=== PATIENT | female | born 1985 | race Caucasian/White ===

== ENCOUNTER 2017-08-21 05:45 | Emergency (ER) | payer OTHER ==
[2017-08-21 07:18] LABS: ABSOLUTE EOSINOPHILS # (AUTO) 0.3 10^3/uL (0.0-0.6); ABSOLUTE LYMPHOCYTES (AUTO) 1.7 10^3/uL (0.5-4.7); ABSOLUTE MONOCYTES (AUTO) 0.6 10^3/uL (0.1-1.4); ABSOLUTE NEUT (AUTO) 4.5 10^3/uL (1.7-8.2); BASOPHILS % (AUTO) 0.3 % (0-2); EOSINOPHILS % (AUTO) 3.9 % (0-6); HEMATOCRIT 40.3 % (36.0-47.0); HEMOGLOBIN 13.9 g/dL (12.0-15.5); LYMPHOCYTES % (AUTO) 23.6 % (13-45); MEAN CORPUSCULAR HEMOGLOBIN 28.8 pg (27.0-33.4); MEAN CORPUSCULAR HGB CONC 34.5 g/dL (32.0-36.0); MEAN CORPUSCULAR VOLUME 84 fl (80-97); MONOCYTES % (AUTO) 8.7 % (3-13); PLATELET COUNT 242 10^3/uL (150-450); RED BLOOD COUNT 4.82 10^6/uL (3.72-5.28); RED CELL DISTRIBUTION WIDTH 12.8 % (11.5-14.0); SEGMENTED NEUTROPHILS % (AUTO) 63.5 % (42-78); TOTAL CELLS COUNTED % (AUTO) 100 %
[2017-08-21] MEDS ORDERED: ONDANSETRON HCL INJ/PF 4 MG/2 ML SDV IV ONE (07:19)
[2017-08-21] MEDS ORDERED: HYDROMORPHONE HCL INJ/PF 2 MG/ML AMPULE IV ONE (07:19)
--- NOTE | 2017-08-21 07:25 | ER Document Report ---
ED General - General Mode of Arrival: Ambulatory Information source: Patient TRAVEL OUTSIDE OF THE [place] IN LAST 30 DAYS: No <JAKUB MOLINA - Last Filed: 08/21/17 08:38> <ALEXIS NOLASCO - Last Filed: 08/21/17 16:01> - General Chief Complaint: Pelvic Pain Stated Complaint: ABDOMINAL PAIN Time Seen by Provider: 08/21/17 06:59 Notes: Patient is a 32 year old female with PCOS presents to the emergency department complaining of abdominal pain onset this morning. Patient states she woke up with severe right lower quadrant abdominal pain further stating she has felt similar pain just not as severe. Patient also states she normally has heavy periods although her current period consisted of dark brown blood and thick discharge which is abnormal for her. Patient denies any nausea, vomiting or diarrhea. Of significance, patient states she has had kidney stones in the past although her current pain feels nothing like her previous kidney stones. (JAKUB MOLINA) Last menstrual period was in May however this is not unusual for her as she has PCOS and frequently has irregular periods. (ALEXIS NOLASCO) - Related Data Allergies/Adverse Reactions: No Known Allergies Allergy (Verified 08/21/17 08:38) Past Medical History - General Information source: Patient Last Menstrual Period: 08-10-17 - Social History Smoking Status: Never Smoker Chew tobacco use (# tins/day): No Frequency of alcohol use: Rare Drug Abuse: None Family History: Reviewed & Not Pertinent Patient has suicidal ideation: No Patient has homicidal ideation: No Renal/ Medical History: Reports: Hx Kidney Stones, Hx Ovarian Cysts - PCOS, Hx Peritoneal Dialysis <JAKUB MOLINA - Last Filed: 08/21/17 08:38> Review of Systems - Review of Systems Constitutional: No symptoms reported EENT: No symptoms reported Cardiovascular: No symptoms reported Respiratory: No symptoms reported Gastrointestinal: See HPI, Abdominal pain Genitourinary: No symptoms reported Female Genitourinary: See HPI, Heavy/abnormal periods, Vaginal discharge Musculoskeletal: No symptoms reported Skin: No symptoms reported Hematologic/Lymphatic: No symptoms reported Neurological/Psychological: No symptoms reported -: Yes All other systems reviewed and negative <JAKUB MOLINA - Last Filed: 08/21/17 08:38> Physical Exam <JAKUB MOLINA - Last Filed: 08/21/17 08:38> <ALEXIS NOLASCO - Last Filed: 08/21/17 16:01> - Vital signs Vitals: Temp Pulse Resp BP Pulse Ox 97.8 F 86 16 117/80 100 08/21/17 05:54 08/21/17 05:54 08/21/17 05:54 08/21/17 05:54 08/21/17 05:54 - Notes Notes: GENERAL: Alert, interacts well. No acute distress. HEAD: Normocephalic, atraumatic. EYES: Pupils equal, round, and reactive to light. Extraocular movements intact. ENT: Oral mucosa moist, tongue midline. NECK: Full range of motion. Supple. Trachea midline. LUNGS: Clear to auscultation bilaterally, no wheezes, rales, or rhonchi. No respiratory distress. HEART: Regular rate and rhythm. No murmurs, gallops, or rubs. ABDOMEN: Soft, RLQ tenderness to palpation, small amount of guarding, no rebound or rigidity. Non-distended. Bowel sounds present in all 4 quadrants. EXTREMITIES: Moves all 4 extremities spontaneously. NEUROLOGICAL: Alert and oriented x3. Normal speech. PSYCH: Normal affect, normal mood. SKIN: Warm, dry, normal turgor. No rashes or lesions noted. (JAKUB MOLINA) Course - Laboratory Result Diagrams: 08/21/17 07:05 08/21/17 07:05 <JAKUB MOLINA - Last Filed: 08/21/17 08:38> - Laboratory Result Diagrams: 08/21/17 07:05 08/21/17 07:05 <ALEXIS NOLASCO - Last Filed: 08/21/17 16:01> - Re-evaluation Re-evalutation: 08/21/17 11:39 CBC unremarkable, no leukocytosis, no anemia, CMP unremarkable, test is actually positive with a quantitative beta-hCG of 449.35, urinalysis shows moderate blood but only 1 RBC, gonorrhea and chlamydia not detected and dirty urine, patient is O+ so RhoGam is not indicated, transvaginal ultrasound initially performed to look for ovarian torsion before we knew the test was positive but then reexamined once we knew the test was positive showed small to mild free fluid in the cul-de-sac, this finding may be on a physiologic basis, possible ruptured ovarian cyst or follicle, no thickening of the endometrial stripe. Good blood flow to the bilateral ovaries. No masses. Patient's abdomen is tender to palpation but is not surgical at this time. Discussed the case with Dr. Tamara Weber who is on- call for [employer], recommends repeating quantitative hCG in 2 days. Recommends discharge to home. Should the patient's pain worsen patient has been instructed to return and she may be admitted to the hospital for observation should her pain worsen significantly or she develop any signs of ruptured ectopic . Dr. Weber also stated that the pain may be due to a ruptured corpus luteum cyst. Patient is aware of the broad differential for her pain and her vaginal bleeding. Patient is aware she was should return should the pain worsen and she should come back for a repeat quantitative hCG in 2 days. (ALEXIS NOLASCO) - Vital Signs Vital signs: Temp Pulse Resp BP Pulse Ox 98.2 F 86 16 104/76 97 08/21/17 11:49 08/21/17 05:54 08/21/17 05:54 08/21/17 11:49 08/21/17 11:49 - Laboratory Laboratory results interpreted by me: 08/21/17 08/21/17 08/21/17 07:05 07:05 07:05 Chloride 108 H Glucose 113 H Serum HCG, Qual POSITIVE H Beta HCG, Quant 449.35 H Urine Blood 08/21/17 07:25 Chloride Glucose Serum HCG, Qual Beta HCG, Quant Urine Blood MODERATE H Discharge <JAKUB MOLINA - Last Filed: 08/21/17 08:38> <ALEXIS NOLASCO - Last Filed: 08/21/17 16:01> - Discharge Clinical Impression: RLQ abdominal pain, Positive test, Abdominal pain affecting Condition: Stable Disposition: HOME, SELF-CARE Additional Instructions: Today your test came back positive. It was a very low positive. The exact number was 449.37. You will need to have your quantitative hCG ( test) repeated in 48 hours. Please come back on Monday the to have this repeated. We are hoping that this number will double up by Monday, that would be a promising sign for a normal . If the number goes down then you have likely had a miscarriage. If the number does not double but does somewhat increase then we need to be more suspicious for an ectopic or tubal . You may take Advil, Tylenol and the Vicodin that we have prescribed. If your pain should significantly worsen despite these medications, you become dizzy, pass out or develop any new or concerning symptoms please return to the emergency department immediately. Today your ultrasound did not show a in the uterus or in the tubes. This could be due to movement in miscarriage or just a very early . Prescriptions: Hydrocodone/Acetaminophen [Pennock 5-325 mg Tablet] 1 - 2 tab PO Q4HP PRN #14 tablet PRN Reason: Forms: Follow-Up Laboratory Testing, Parent Work Note, Return to Work Referrals: TAMARA WEBER MD [ACTIVE STAFF] - Follow up in 3-5 days Scribe Attestation: 08/21/17 16:01 I personally performed the services described in the documentation, reviewed and edited the documentation which was dictated to the scribe in my presence, and it accurately records my words and actions. (ALEXIS NOLASCO) Scribe Documentation - Scribe Written by Lizet:: Lizet Mojica, 08/21/2017 08:11 acting as scribe for :: Alexsander <JAKUB MOLINA - Last Filed: 08/21/17 08:38>
[2017-08-21 07:34] LABS: ALANINE AMINOTRANSFERASE 23 U/L (9-52); ALBUMIN 4.1 g/dL (3.5-5.0); ALKALINE PHOSPHATASE 52 U/L (38-126); ANION GAP 10 (5-19); ASPARTATE AMINO TRANSFERASE 36 U/L (14-36); BILIRUBIN,DIRECT 0.2 mg/dL (0.0-0.4); BILIRUBIN,TOTAL 0.3 mg/dL (0.2-1.3); BLOOD UREA NITROGEN 13 mg/dL (7-20); CALCIUM 9.1 mg/dL (8.4-10.2); CARBON DIOXIDE 26 mmol/L (22-30); CHLORIDE 108 mmol/L (98-107); GLUCOSE 113 mg/dL (75-110); POTASSIUM 4.6 mmol/L (3.6-5.0); SODIUM 144.3 mmol/L (137-145); TOTAL PROTEIN 7.2 g/dL (6.3-8.2)
[2017-08-21 07:44] LABS: APPEARANCE,URINE CLEAR; BILIRUBIN,URINE NEGATIVE (NEGATIVE); COLOR,URINE STRAW; GLUCOSE, URINE NEGATIVE (NEGATIVE); KETONES,URINE NEGATIVE (NEGATIVE); LEUKOCYTE ESTERASE,URINE NEGATIVE (NEGATIVE); NITRITE,URINE NEGATIVE (NEGATIVE); PROTEIN,URINE NEGATIVE (NEGATIVE); UROBILINOGEN,URINE NEGATIVE mg/dL (<2.0)
[2017-08-21] MEDS ORDERED: ONDANSETRON 4 MG TAB.RAPDIS ONE (08:40)
[2017-08-21] MEDS ORDERED: ONDANSETRON 4 MG TAB.RAPDIS PO ONE (08:44)
--- NOTE | 2017-08-21 09:10 | RADIOLOGY REPORT (SQ) ---
EXAM DESCRIPTION: U/S NON OB PEL TV W/DOPPLER COMPLETED DATE/TIME: 08/21/2017 8:42 am REASON FOR STUDY: RLQ pain, r/o torsion, h/o PCOS COMPARISON: None. TECHNIQUE: Dynamic and static grayscale images acquired of the pelvis via transvaginal approach and recorded on PACS. Additional selected color Doppler and spectral images recorded. LIMITATIONS: None. FINDINGS: UTERUS: Contour normal. No mass. ENDOMETRIAL STRIPE: No focal or generalized thickening. No masses. CERVIX: The cervix measures 2.1 cm and is closed. RIGHT OVARY AND DOPPLER: Normal size. No worrisome masses. Normal arterial vascular flow without evid ence for torsion. LEFT OVARY AND DOPPLER: Normal size. No worrisome masses. Normal arterial vascular flow without evide nce for torsion. FREE FLUID: Small to mild volume free fluid in the cul-de-sac. OTHER: No other significant finding. MEASUREMENTS: UTERUS: 6.4 x 3.0 x 4.4 cm ENDOMETRIAL STRIPE: 4 mm RIGHT OVARY: 2.4 x 2.1 x 1.8 cm LEFT OVARY: 2.9 x 2.1 x 1.8 cm IMPRESSION: 1 Small to mild free fluid in the cul-de-sac. This finding may be on a physiologic basi s, possible rupture of ovarian cyst or follicle. 2 Examination is otherwise unremarkable sonographically. TECHNICAL DOCUMENTATION: JOB ID: [id number]- All Rights Reserved Rev-06/23 Reading location - IP/workstation name: [email or web address]
[2017-08-21 09:27] LABS: CHLAM PCR NOT DETECTED (NOT DETECT); GON PCR NOT DETECTED (NOT DETECT)
[2017-08-21 12:02] VITALS: BP 104/76
[2017-08-21] MEDS ORDERED: HYDROCODONE/ACETAMINOPHEN 5-325 MG TABLET PO ONE (12:02)
[2017-08-21] MEDS ORDERED: KETOROLAC TROMETHAMINE INJ/PF 30 MG/1 ML SDV IV ONE (12:02)
== END 2017-08-21 12:29 | disposition home or self-care (01) ==
LOC: ER 05:45
DX: O34.80 Maternal care for other abnormalities of pelvic organs, unspecified trimester (principal); E28.2 Polycystic ovarian syndrome; O26.899 Other specified pregnancy related conditions, unspecified trimester; R10.31 Right lower quadrant pain; N89.8 Other specified noninflammatory disorders of vagina; O46.90 Antepartum hemorrhage, unspecified, unspecified trimester; Z3A.00 Weeks of gestation of pregnancy not specified; Z87.442 Personal history of urinary calculi
CPT/HCPCS: 99284; 96374; 96375; 86900; 86901; 36415; 84702; 84703; 85025; 80053; 81001; 87491; 87591; 76830; 93976; S0119; J1885; J1170

== ENCOUNTER → 2017-08-23 | Outpatient (CLI) | payer OTHER | LOC: LAB 08:10 | PROVIDERS: ATTEND Emergency Medicine | DX: R10.31 Right lower quadrant pain (principal) | CPT/HCPCS: 36415; 84702 ==

== ENCOUNTER 2017-09-01 07:45 | Emergency (ER) | payer OTHER ==
[2017-09-01 07:50] VITALS: BP 115/83
[2017-09-01] MEDS ORDERED: ACETAMINOPHEN 325 MG TABLET PO ONE (08:11)
--- NOTE | 2017-09-01 08:25 | ER Document Report ---
ED General - General Chief Complaint: Vaginal Bleeding Stated Complaint: CRAMPING/SPOTTING Time Seen by Provider: 09/01/17 08:09 TRAVEL OUTSIDE OF THE [place] IN LAST 30 DAYS: No - HPI Notes: Patient is a 32-year-old female (approx reported to be around <=6wks) with a history of PCOS who presents to the ED complaining of suprapubic/right lower pelvic pain and vaginal bleeding 1 day. Patient states that she was evaluated about 11 days ago here in the ED and had a workup performed at that time and found she is , but the ultrasound was unremarkable at that time. Patient states that she was also evaluated by the women's clinic and they could not "find anything." Patient states that she was starting to feel better and was not having any bleeding until last night which is what prompted her to come to the ED again today. Patient states that she is otherwise eating and drinking without any difficulties. She is urinating normally and having normal bowel movements. Patient denies any IV drug use or alcohol involvement. Denies any headache, fever, URI, sore throat, chest pain, palpitations, syncope, cough, shortness of breath, wheeze, dyspnea, nausea/vomiting/diarrhea, urinary retention, dysuria, hematuria, back pain, loss of control of bowel or bladder, numbness/tingling, saddle anesthesia, muscle paralysis/weakness, or rash. - Related Data Allergies/Adverse Reactions: No Known Allergies Allergy (Verified 09/01/17 09:52) Past Medical History - Social History Smoking Status: Never Smoker Family History: Reviewed & Not Pertinent Renal/ Medical History: Reports: Hx Kidney Stones, Hx Ovarian Cysts - PCOS, Hx Peritoneal Dialysis Review of Systems - Review of Systems -: Yes All other systems reviewed and negative Physical Exam - Vital signs Vitals: Temp Pulse Resp BP Pulse Ox 97.8 F 73 16 115/83 98 09/01/17 07:49 09/01/17 07:49 09/01/17 07:49 09/01/17 07:49 09/01/17 07:49 - Notes Notes: PHYSICAL EXAMINATION: GENERAL: Well-appearing, well-nourished and in no acute distress. EYES: Pupils equal round and reactive to light, extraocular movements intact, sclera anicteric, conjunctiva are normal. ENT: Nares patent and without discharge. oropharynx clear without exudates. No tonsilar hypertrophy or erythema. Moist mucous membranes. NECK: Normal range of motion, supple without lymphadenopathy LUNGS: Breath sounds clear to auscultation bilaterally and equal. No wheezes rales or rhonchi. HEART: Regular rate and rhythm without murmurs, rubs, gallops. ABDOMEN: Soft, nondistended abdomen. No guarding, no rebound. No masses appreciated. Normal bowel sounds present. No CVA tenderness bilaterally. + mild tenderness to the suprapubic/Rt lower pelvic area. Musculoskeletal: FROM to passive/active. Strength 5+/5. Extremities: No cyanosis, clubbing, or edema b/l. Peripheral pulses 2+. Capillary refill less than 3 seconds. NEUROLOGICAL: Normal speech, normal gait. PSYCH: Normal mood, normal affect. SKIN: Warm, Dry, normal turgor, no rashes or lesions noted. Course - Re-evaluation Re-evalutation: 09/01/17 08:23 Patient had an unremarkable ultrasound at last visit as well as an hCG of 449. She had a repeat hCG 48 hours later that was 628. She had negative STD testing at that time. We will recheck labs and ultrasound. tylenol ordered. 09/01/17 09:53 Patient is an afebrile, well-hydrated, 32-year-old female who presents to the ED with pelvic pain/bleeding in early , suspect that she is miscarrying. Vitals are acceptable without any significant tachycardia, tachypnea, or hypoxia. PE is otherwise unremarkable. CBC, CMP, UA unremarkable. HCG only increased from 628 11 days ago to 699. Patient is nontoxic-appearing is tolerating p.o. without any difficulties. Transvaginal ultrasound was also unremarkable. No adenexal tenderness. No other labs or imaging warranted at this time based on H&P. Low suspicion/risk for acute appendicitis, bowel obstruction, acute cholecystitis, acute cholangitis, perforated diverticulitis, incarcerated hernia, pancreatitis, perforated ulcer, peritonitis, sepsis, pelvic inflammatory disease, tubo-ovarian abscess, ovarian torsion, or other systemic emergent condition at this time. I did call and review with RANDELL Hill, who believes that she is miscarrying and we do not need to order another set of labs/imaging at this time. He would like her to have some pain meds for cramping and to f/u Monday with the [facility]. Patient is aware that her condition can change from initial presentation and she needs to monitor symptoms closely and seek medical attention if any acute changes. I will send her home with prescription for morphine IR. Conservative measures otherwise for symptoms. Recheck with your OBGYN monday. Return to the ED with any worsening/concerning symptoms otherwise as reviewed in discharge. Patient is in agreement. - Vital Signs Vital signs: Temp Pulse Resp BP Pulse Ox 97.8 F 73 16 115/83 98 09/01/17 07:49 09/01/17 07:49 09/01/17 07:49 09/01/17 07:49 09/01/17 07:49 - Laboratory Result Diagrams: 09/01/17 08:10 09/01/17 08:10 Laboratory results interpreted by me: 09/01/17 09/01/17 08:10 08:10 Beta HCG, Quant 699.33 H Urine Ketones TRACE H Urine Blood MODERATE H Discharge - Discharge Clinical Impression: Bleeding in early Condition: Stable Disposition: HOME, SELF-CARE Instructions: Bleeding During Early ([facility]) Additional Instructions: Maintain fluid intake Proper hygenic technique Keep the skin clean Avoid sexual intercourse until directed otherwise by OBGYN Tylenol/ibuprofen as needed Return immediately if symptoms worsen F/u with your OBGYN on Monday* for a recheck Return to the ED with any development of LYNN/fever, trouble with vision, eye redness, worsening pain, urethral discharge, urinary retention, blood in the urine, flank pain, abdominal pain, n/v, Chest Pain, shortness of breath, joint pains, trouble breathing, or any other worsening/concerning symptoms as needed otherwise. Prescriptions: Morphine Sulfate [Morphine Ir 15 Mg Tablet] 15 mg PO TID PRN #15 tablet PRN Reason: [facility]errals[facility]] - 09/04/17
[2017-09-01 08:32] LABS: ABSOLUTE EOSINOPHILS # (AUTO) 0.2 10^3/uL (0.0-0.6); ABSOLUTE LYMPHOCYTES (AUTO) 1.8 10^3/uL (0.5-4.7); ABSOLUTE MONOCYTES (AUTO) 0.6 10^3/uL (0.1-1.4); ABSOLUTE NEUT (AUTO) 4.2 10^3/uL (1.7-8.2); BASOPHILS % (AUTO) 0.3 % (0-2); EOSINOPHILS % (AUTO) 3.1 % (0-6); HEMATOCRIT 41.3 % (36.0-47.0); HEMOGLOBIN 14.1 g/dL (12.0-15.5); LYMPHOCYTES % (AUTO) 26.2 % (13-45); MEAN CORPUSCULAR HEMOGLOBIN 28.8 pg (27.0-33.4); MEAN CORPUSCULAR HGB CONC 34.1 g/dL (32.0-36.0); MEAN CORPUSCULAR VOLUME 85 fl (80-97); MONOCYTES % (AUTO) 8.5 % (3-13); PLATELET COUNT 250 10^3/uL (150-450); RED BLOOD COUNT 4.89 10^6/uL (3.72-5.28); RED CELL DISTRIBUTION WIDTH 12.8 % (11.5-14.0); SEGMENTED NEUTROPHILS % (AUTO) 61.9 % (42-78); TOTAL CELLS COUNTED % (AUTO) 100 %; WHITE BLOOD COUNT 6.7 10^3/uL (4.0-10.5)
[2017-09-01 08:51] LABS: APPEARANCE,URINE CLOUDY; BILIRUBIN,URINE NEGATIVE (NEGATIVE); COLOR,URINE YELLOW; GLUCOSE, URINE NEGATIVE (NEGATIVE); KETONES,URINE TRACE mg/dL (NEGATIVE); LEUKOCYTE ESTERASE,URINE NEGATIVE (NEGATIVE); NITRITE,URINE NEGATIVE (NEGATIVE); PROTEIN,URINE NEGATIVE (NEGATIVE); URINE SPECIFIC GRAVITY 1.017; UROBILINOGEN,URINE NEGATIVE mg/dL (<2.0)
[2017-09-01 08:52] LABS: ALANINE AMINOTRANSFERASE 49 U/L (9-52); ALBUMIN 4.3 g/dL (3.5-5.0); ALKALINE PHOSPHATASE 54 U/L (38-126); ANION GAP 13 (5-19); ASPARTATE AMINO TRANSFERASE 34 U/L (14-36); BILIRUBIN,DIRECT 0.2 mg/dL (0.0-0.4); BILIRUBIN,TOTAL 0.6 mg/dL (0.2-1.3); BLOOD UREA NITROGEN 15 mg/dL (7-20); CALCIUM 9.3 mg/dL (8.4-10.2); CARBON DIOXIDE 25 mmol/L (22-30); CHLORIDE 105 mmol/L (98-107); GLUCOSE 102 mg/dL (75-110); POTASSIUM 4.4 mmol/L (3.6-5.0); SODIUM 142.9 mmol/L (137-145); TOTAL PROTEIN 7.2 g/dL (6.3-8.2)
--- NOTE | 2017-09-01 09:46 | RADIOLOGY REPORT (SQ) ---
EXAM DESCRIPTION: U/S OB TRANSVAG W/DOPPLER COMPLETED DATE/TIME: 09/01/2017 9:37 am REASON FOR STUDY: rt pelvic pain, + COMPARISON: None. TECHNIQUE: Transabdominal static and realtime grayscale images acquired of the pelvis. Additional se lected spectral and color Doppler images recorded. All images stored on PACs. BHC.3 LIMITATIONS: None. FINDINGS: UTERUS: No visualized intrauterine . RIGHT ADNEXA: Normal ovary with normal vascular flow. No adnexal free fluid. No adnexal masses. LEFT ADNEXA: Normal ovary with normal vascular flow. No adnexal free fluid. No adnexal masses. FREE FLUID: None. OTHER: No other significant finding. IMPRESSION: NO VISUALIZED INTRA- OR EXTRAUTERINE . bHCG LEVEL TOO LOW TO EXPECT VISUALIZATION OF . ECTOPIC CANNOT BE EXCLUDED. FOLLOW-UP ULTRASOUND AND SERIAL BHCG LEVELS STRONGLY RECOMMENDED TO ACCURATELY ASSESS STATU S. TECHNICAL DOCUMENTATION: JOB ID: [id number] [employer]- All Rights Reserved Reading location - IP/workstation name: [email or web address]
== END 2017-09-01 10:18 | disposition home or self-care (01) ==
LOC: ER 07:45
DX: O20.9 Hemorrhage in early pregnancy, unspecified (principal); O26.899 Other specified pregnancy related conditions, unspecified trimester; R10.2 Pelvic and perineal pain; Z3A.00 Weeks of gestation of pregnancy not specified
CPT/HCPCS: 36415; 76817; 80053; 81001; 84702; 85025; 87086; 93976; 99284

== ENCOUNTER 2017-09-06 09:42 | Day surgery (SDC) | payer OTHER ==
[~2017-09-06 09:42] MED LIST: FENTANYL CITRATE INJ/PF 100 MCG/2 ML AMPUL ONE; MIDAZOLAM 2 MG/2 ML INJ ONE; PROPOFOL INJ 200 MG/20 ML VIAL IV ONE
[2017-09-06 10:27] LABS: APPEARANCE,URINE CLEAR; BILIRUBIN,URINE NEGATIVE (NEGATIVE); COLOR,URINE YELLOW; GLUCOSE, URINE NEGATIVE (NEGATIVE); KETONES,URINE NEGATIVE (NEGATIVE); LEUKOCYTE ESTERASE,URINE NEGATIVE (NEGATIVE); NITRITE,URINE NEGATIVE (NEGATIVE); PROTEIN,URINE NEGATIVE (NEGATIVE); URINE SPECIFIC GRAVITY 1.014; UROBILINOGEN,URINE NEGATIVE mg/dL (<2.0)
[2017-09-06 10:39] LABS: HEMATOCRIT 40.4 % (36.0-47.0); HEMOGLOBIN 14.1 g/dL (12.0-15.5); MEAN CORPUSCULAR HEMOGLOBIN 29.1 pg (27.0-33.4); MEAN CORPUSCULAR HGB CONC 34.8 g/dL (32.0-36.0); MEAN CORPUSCULAR VOLUME 84 fl (80-97); PLATELET COUNT 243 10^3/uL (150-450); RED BLOOD COUNT 4.83 10^6/uL (3.72-5.28); RED CELL DISTRIBUTION WIDTH 12.8 % (11.5-14.0); WHITE BLOOD COUNT 6.4 10^3/uL (4.0-10.5)
[2017-09-06] MEDS ORDERED: FENTANYL CITRATE INJ/PF 100 MCG/2 ML AMPUL IV PRN ×3 (11:41)
[2017-09-06] MEDS ORDERED: MEPERIDINE HCL/PF INJ 25 MG/1 ML DISP.SYRIN IV PRN (11:41)
[2017-09-06] MEDS ORDERED: DIPHENHYDRAMINE HCL 50 MG/ML VIAL IV PRN (11:41)
[2017-09-06] MEDS ORDERED: PROMETHAZINE HCL INJ 25 MG/1 ML VIAL IV PRN (11:41)
--- NOTE | 2017-09-06 11:58 | Operative Report ---
Operative Report DATE OF SURGERY: 09/06/17 PREOPERATIVE DIAGNOSIS: Patient has a plateaued quant hCG at about 600. We are performing a D&C to evaluate for uterine versus ectopic. POSTOPERATIVE DIAGNOSIS: Very little return of tissue at this time I suspect she has an ectopic. OPERATION: Suction D&C SURGEON: SEBASTIÁN AKINS ANESTHESIA: GA TISSUE REMOVED OR ALTERED: Uterine contents COMPLICATIONS: None ESTIMATED BLOOD LOSS: 10 cc INTRAOPERATIVE FINDINGS: The uterine cavity diverts to the patient's left I suspect a uterine malformation. PROCEDURE: Patient was taken the OR and placed in supine position. General anesthesia was induced. She is placed in dorsolithotomy position using Kurt stirrups. Her perineum vagina were prepared and draped in sterile fashion. She had voided prior to the procedure did not need catheterization. Tenaculum was placed on the anterior aspect of the cervix sounded to 8 cm before and at the end of the case. This the uterine cavity does divert to the patient's left. Cervix was gently dilated. The cervix was difficult to dilate and would not allow the size 8 curette. For this reason I used an endometrial sampler to obtain the specimen. The device used a syringe for suction. Also a hysteroscope could not be placed because of the difficulty in dilating the patient cervix. Very little tissue was obtained. I suspect that there is not a intrauterine present. She has had a plateaued hCG for several weeks and likely has an ectopic. We will give methotrexate after tissue diagnosis returns. She was extubated in the OR and taken recovery in stable condition.
[2017-09-06] MEDS ORDERED: KETOROLAC TROMETHAMINE INJ/PF 30 MG/1 ML SDV ONE ×2 (12:09→12:15)
[2017-09-06] MEDS ORDERED: ACETAMINOPHEN 1,000 MG/100 ML RTUPB IV ONE (12:12)
[2017-09-06] MEDS ORDERED: FENTANYL CITRATE INJ/PF 100 MCG/2 ML AMPUL ONE (12:32)
[2017-09-06] MEDS ORDERED: OXYCODONE-ACETAMINOPHEN 5-325 MG TABLET PO PRN ×2 (12:39→12:40)
[2017-09-06] MEDS ORDERED: IBUPROFEN 800 MG TABLET PO PRN (12:39)
[2017-09-06] MEDS ORDERED: RINGERS SOLUTION,LACTATED 1,000 ML IV PRN (12:42)
[2017-09-06 16:25] VITALS: BP 110/64
[2017-09-06] MEDS ORDERED: ONDANSETRON HCL INJ/PF 4 MG/2 ML SDV ONE (21:23)
== END 2017-09-06 14:45 | disposition home or self-care (01) ==
LOC: OROUT 09:42
PROVIDERS: ATTEND Obstetrics & Gynecology
DX: O20.0 Threatened abortion (principal); E11.9 Type 2 diabetes mellitus without complications; E28.2 Polycystic ovarian syndrome
CPT/HCPCS: 36415; 84702; 85027; 81001; 88305 ×2; 59812; J2250; J3010; J1885; J2405; J2704; J0131; 1965

== ENCOUNTER 2018-07-04 14:16 | Outpatient (CLI) | payer OTHER | END 2018-07-04 15:29 | disposition home or self-care (01) | LOC: LC 14:16 | PROVIDERS: ATTEND Obstetrics & Gynecology | DX: O26.892 Other specified pregnancy related conditions, second trimester (principal); R10.2 Pelvic and perineal pain; Z3A.24 24 weeks gestation of pregnancy ==

== ENCOUNTER 2018-09-28 05:04 | Emergency (ER) | payer OTHER ==
[2018-09-28 05:25] VITALS: BP 144/91
--- NOTE | 2018-09-28 06:50 | ER Document Report ---
HPI - HPI Time Seen by Provider: 09/28/18 06:24 Pain Level: 3 Context: Patient is a 33-year-old female that comes to the emergency department for chief complaint of left knee pain. She states since yesterday she has had a lot of popping and pain with movement. Pain is worse on the stairs. She states she is unsure if she injured herself. She is 33 weeks . She denies swelling of the leg, denies numbness, denies any other complaints. - REPRODUCTIVE LMP: 36 wk preg Reproductive: REPORTS: : Past Medical History - General Information source: Patient - Social History Smoking Status: Never Smoker Frequency of alcohol use: None Lives with: Family Family History: Reviewed & Not Pertinent Patient has suicidal ideation: No Patient has homicidal ideation: No - Past Medical History Cardiac Medical History: Denies: Hx Coronary Artery Disease, Hx Heart Attack, Hx Hypertension Pulmonary Medical History: Denies: Hx Asthma, Hx Bronchitis, Hx COPD, Hx Pneumonia Neurological Medical History: Denies: Hx Cerebrovascular Accident, Hx Seizures Renal/ Medical History: Reports: Hx Kidney Stones, Hx Ovarian Cysts - PCOS. Denies: Hx Peritoneal Dialysis Musculoskeletal Medical History: Denies Hx Arthritis Past Surgical History: Reports: Hx Tonsillectomy - Immunizations Immunizations up to date: Yes Hx Diphtheria, Pertussis, Tetanus Vaccination: Yes Vertical Provider Document - CONSTITUTIONAL General Appearance: WD/WN, No Apparent Distress - INFECTION CONTROL TRAVEL OUTSIDE OF THE [place] IN LAST 30 DAYS: No - HEENT HEENT: Atraumatic, Normal ENT Exam, Normocephalic - NECK Neck: Normal Inspection - RESPIRATORY Respiratory: Breath Sounds Normal, No Respiratory Distress - CARDIOVASCULAR Cardiovascular: Regular Rate, Regular Rhythm - GI/ABDOMEN Gastrointestinal: Abdomen Soft, Abdomen Non-Tender - BACK Back: Normal Inspection - MUSCULOSKELETAL/EXTREMETIES Musculoskeletal/Extremeties: MAEW, FROM, Non-Tender - There is no tenderness over the left knee where the complaint is focused, there is no abnormal swelling, erythema, and there is full range of motion. Calf is unremarkable, distal neurovascular exam unremarkable, hip and ankle are unremarkable. However there is a positive Silva's test with popping. Course - Re-evaluation Re-evalutation: Patient with very unremarkable knee exam with no tenderness on palpation, no erythema, swelling, normal range of motion. Very low suspicion of septic arthritis, no evidence of trauma. However she does have a positive Silva's test. Based on her description and her exam I suspect she has a torn meniscus. She is . She was provided with knee immobilizer, crutches, recommendations, expectations, follow-up, and return precautions. I discussed these all in detail. Patient declined x-ray after discussion. Stable at time of discharge. - Vital Signs Vital signs: Temp Pulse Resp BP Pulse Ox 97.2 F 93 16 144/91 H 97 09/28/18 05:17 09/28/18 05:17 09/28/18 05:17 09/28/18 05:17 09/28/18 05:17 Discharge - Discharge Clinical Impression: Left knee pain Qualifiers: Chronicity: acute Qualified Code(s): M25.562 - Pain in left knee Condition: Stable Disposition: HOME, SELF-CARE Instructions: Use of Crutches ([facility]) Additional Instructions: Your evaluation is very suggestive of a meniscus tear inside the knee. This can heal, I recommend that you use a knee immobilizer and crutches, ice the area 3-4 times a day, and rest the knee. Symptoms might resolve with time. If symptoms persist follow-up with orthopedics, see referral. Return for any concerning symptoms including severe swelling, redness, pain, fever, or any other concerning symptoms. Forms: Return to Work Referrals: JUSTA PATE MD [ACTIVE STAFF] - Follow up in 1 week
== END 2018-09-28 07:06 | disposition home or self-care (01) ==
LOC: ER 05:04
DX: O9A.213 Injury, poisoning and certain other consequences of external causes complicating pregnancy, third trimester (principal); M25.562 Pain in left knee; X58.XXXA Exposure to other specified factors, initial encounter; Z3A.33 33 weeks gestation of pregnancy
CPT/HCPCS: 99283; L1830

== ENCOUNTER 2019-03-10 09:31 | Emergency (ER) | payer OTHER ==
[2019-03-10] MEDS ORDERED: ACETAMINOPHEN 325 MG TABLET PO ONE (10:25)
--- NOTE | 2019-03-10 10:26 | ER Document Report ---
ED Medical Screen (RME) - General Chief Complaint: Abdominal Cramping Stated Complaint: CRAMPS Time Seen by Provider: 03/10/19 10:19 Notes: Patient is a 33-year-old female who presents to the emergency department with a chief complaint of mid to right lower quadrant abdominal pain. Patient states that this pain feels similar as to when she had an ectopic in 2018. She denies any vaginal bleeding. Patient states that her last menstrual cycle was mid to late January. She cannot remember the exact date. Patient still has her appendix. She has not taken any medications to help with the pain. Exam: Soft, mildly tender right lower quadrant and mid lower abdomen. I have greeted and performed a rapid initial assessment of this patient. A comprehensive ED assessment and evaluation of the patient, analysis of test results and completion of medical decision making process will be conducted by an additional ED providers. TRAVEL OUTSIDE OF THE [place] IN LAST 30 DAYS: No - Related Data Allergies/Adverse Reactions: No Known Allergies Allergy (Verified 03/10/19 10:17) Past Medical History - Past Medical History Cardiac Medical History: Denies: Hx Coronary Artery Disease, Hx Heart Attack, Hx Hypertension Pulmonary Medical History: Denies: Hx Asthma, Hx Bronchitis, Hx COPD, Hx Pneumonia Neurological Medical History: Denies: Hx Cerebrovascular Accident, Hx Seizures Renal/ Medical History: Reports: Hx Kidney Stones, Hx Ovarian Cysts - PCOS, Hx Peritoneal Dialysis Musculoskeltal Medical History: Denies Hx Arthritis Past Surgical History: Reports: Hx Tonsillectomy - Immunizations Immunizations up to date: Yes Hx Diphtheria, Pertussis, Tetanus Vaccination: Yes Physical Exam - Vital signs Vitals: Temp Pulse Resp BP Pulse Ox 98.1 F 100 18 148/87 H 100 03/10/19 09:35 03/10/19 09:35 03/10/19 09:35 03/10/19 09:35 03/10/19 09:35 Course - Vital Signs Vital signs: Temp Pulse Resp BP Pulse Ox 98.1 F 100 18 148/87 H 100 03/10/19 09:35 03/10/19 09:35 03/10/19 09:35 03/10/19 09:35 03/10/19 09:35
[2019-03-10 11:05] LABS: ABSOLUTE EOSINOPHILS # (AUTO) 0.3 10^3/uL (0.0-0.6); ABSOLUTE LYMPHOCYTES (AUTO) 2.1 10^3/uL (0.5-4.7); ABSOLUTE MONOCYTES (AUTO) 0.5 10^3/uL (0.1-1.4); ABSOLUTE NEUT (AUTO) 6.4 10^3/uL (1.7-8.2); BASOPHILS % (AUTO) 0.2 % (0-2); EOSINOPHILS % (AUTO) 2.8 % (0-6); HEMATOCRIT 42.9 % (36.0-47.0); HEMOGLOBIN 14.8 g/dL (12.0-15.5); MEAN CORPUSCULAR HEMOGLOBIN 27.7 pg (27.0-33.4); MEAN CORPUSCULAR HGB CONC 34.4 g/dL (32.0-36.0); MEAN CORPUSCULAR VOLUME 81 fl (80-97); MONOCYTES % (AUTO) 5.6 % (3-13); PLATELET COUNT 308 10^3/uL (150-450); RED BLOOD COUNT 5.33 10^6/uL (3.72-5.28); RED CELL DISTRIBUTION WIDTH 13.7 % (11.5-14.0); SEGMENTED NEUTROPHILS % (AUTO) 68.4 % (42-78); TOTAL CELLS COUNTED % (AUTO) 100 %; WHITE BLOOD COUNT 9.3 10^3/uL (4.0-10.5)
[2019-03-10 11:09] LABS: APPEARANCE,URINE CLEAR; BILIRUBIN,URINE NEGATIVE (NEGATIVE); COLOR,URINE STRAW; GLUCOSE, URINE NEGATIVE (NEGATIVE); KETONES,URINE NEGATIVE (NEGATIVE); LEUKOCYTE ESTERASE,URINE NEGATIVE (NEGATIVE); NITRITE,URINE NEGATIVE (NEGATIVE); PROTEIN,URINE NEGATIVE (NEGATIVE); URINE SPECIFIC GRAVITY 1.008; UROBILINOGEN,URINE NEGATIVE mg/dL (<2.0)
[2019-03-10 11:26] LABS: ALBUMIN 4.5 g/dL (3.5-5.0); ALKALINE PHOSPHATASE 74 U/L (38-126); ANION GAP 10 (5-19); ASPARTATE AMINO TRANSFERASE 23 U/L (14-36); BILIRUBIN,DIRECT 0.2 mg/dL (0.0-0.4); BILIRUBIN,TOTAL 0.4 mg/dL (0.2-1.3); BLOOD UREA NITROGEN 12 mg/dL (7-20); CALCIUM 9.7 mg/dL (8.4-10.2); CARBON DIOXIDE 25 mmol/L (22-30); CHLORIDE 103 mmol/L (98-107); GLUCOSE 112 mg/dL (75-110); POTASSIUM 4.1 mmol/L (3.6-5.0); TOTAL PROTEIN 7.9 g/dL (6.3-8.2)
--- NOTE | 2019-03-10 12:21 | RADIOLOGY REPORT (SQ) ---
EXAM DESCRIPTION: U/S NON OB PEL TV W/DOPPLER COMPLETED DATE/TIME: 03/10/2019 12:05 pm REASON FOR STUDY: right pelvic pain COMPARISON: None. TECHNIQUE: Transvaginal static and realtime grayscale images acquired of the pelvis. Additional gwyn cted spectral and color Doppler images recorded. All images stored on PACs. CLINICAL AGE: Unavailable. bHCG: Unavailable. LIMITATIONS: None. FINDINGS: UTERUS: No masses. No anomalies. GESTATIONAL SAC: Normal shape. Measurements correspond to a 6 week 0 day gestation. YOLK SAC: Yes. POLE: None present. RIGHT ADNEXA: Ovary not identified due to poor acoustical window. No adnexal free fluid. No adnexal masses. LEFT ADNEXA: Ovary not identified due to poor acoustical window. No adnexal free fluid. No adnexal masses. FREE FLUID: None. OTHER: No other significant finding. IMPRESSION: POSSIBLE EARLY INTRAUTERINE . BHCG LEVEL NOT AVAILABLE FOR CORRELATION WITH US FINDINGS. CONSIDER F/U BHCG AND/OR ULTRASOUND FOR VERIFICATION AND TO EXCLUDE ECTOPIC . Trimester of : First trimester - 0 to 13 weeks. TECHNICAL DOCUMENTATION: JOB ID: [id number] [email or web address]- All Rights Reserved Reading location - IP/workstation name: [email or web address]
--- NOTE | 2019-03-10 12:22 | RADIOLOGY REPORT (SQ) ---
EXAM DESCRIPTION: U/S ABDOMEN LTD W/DOPPLER COMPLETED DATE/TIME: 03/10/2019 12:06 pm REASON FOR STUDY: RLQ pain COMPARISON: None. TECHNIQUE: Static and real time rodríguez scale imaging performed of the right lower quadrant with additi onal compression maneuvers. LIMITATIONS: Limited study due to the patient's body habitus. FINDINGS: APPENDIX: Not visualized. COMPRESSION MANEUVERS: No rebound pain with compression. OTHER: No other significant finding. IMPRESSION: APPENDIX NOT IDENTIFIED. TECHNICAL DOCUMENTATION: JOB ID: [id number] [employer]- All Rights Reserved Reading location - IP/workstation name: [email or web address]
[2019-03-10 14:40] VITALS: BP 139/86
--- NOTE | 2019-03-10 17:40 | ER Document Report ---
Entered by PADMINI RODRIGUEZ SCRIBE 03/10/19 1205 Acting as scribe for:LOC PORTILLO MD ED General - General Chief Complaint: Abdominal Cramping Stated Complaint: CRAMPS Time Seen by Provider: 03/10/19 10:19 Primary Care Provider: [facility] [Provider Group] - Follow up as needed Information source: Patient Notes: This 33 year old female patient, A1, presents to the emergency department today with complaints of cramps in the lower abdomen for the past 2 days, which is different from her usual cramps. Patient states she has had night sweats and took a home test, which was positive. Patient also states she had an ectopic x2 years ago and her cramps are similar to cramps felt when this occurred. TRAVEL OUTSIDE OF THE [place] IN LAST 30 DAYS: No - Related Data Allergies/Adverse Reactions: No Known Allergies Allergy (Verified 03/10/19 10:17) Past Medical History - General Information source: Patient - Social History Smoking Status: Never Smoker Cigarette use (# per day): No Chew tobacco use (# tins/day): No Frequency of alcohol use: None Drug Abuse: None Family History: Reviewed & Not Pertinent Patient has suicidal ideation: No Patient has homicidal ideation: No Renal/ Medical History: Reports: Hx Kidney Stones, Hx Ovarian Cysts - PCOS, Hx Peritoneal Dialysis Past Surgical History: Reports: Hx Gynecologic Surgery - D&C, Hx Tonsillectomy - Immunizations Immunizations up to date: Yes Hx Diphtheria, Pertussis, Tetanus Vaccination: Yes Review of Systems - Review of Systems Constitutional: See HPI, Chills EENT: No symptoms reported Cardiovascular: No symptoms reported Respiratory: No symptoms reported Gastrointestinal: See HPI, Abdominal pain Genitourinary: No symptoms reported Female Genitourinary: See HPI Skin: No symptoms reported Hematologic/Lymphatic: No symptoms reported Neurological/Psychological: No symptoms reported -: Yes All other systems reviewed and negative Physical Exam - Vital signs Vitals: Temp Pulse Resp BP Pulse Ox 98.1 F 100 18 148/87 H 100 03/10/19 09:35 03/10/19 09:35 03/10/19 09:35 03/10/19 09:35 03/10/19 09:35 - General General appearance: Appears well, Alert - HEENT Head: Normocephalic, Atraumatic Eyes: Normal Pupils: PERRL - Respiratory Respiratory status: No respiratory distress Breath sounds: Normal - Cardiovascular Rhythm: Regular Heart sounds: Normal auscultation Murmur: No - Abdominal Distension: No distension Bowel sounds: Normal Tenderness: Tender - Suprapubic region Organomegaly: No organomegaly - Extremities General upper extremity: Normal inspection. No: Edema General lower extremity: Normal inspection. No: Edema - Neurological Neuro grossly intact: Yes Cognition: Normal Orientation: AAOx4 - Psychological Associated symptoms: Normal affect, Normal mood - Skin Skin Temperature: Warm Skin Moisture: Dry Skin Color: Normal Course - Re-evaluation Re-evalutation: 03/10/19 14:24 Patient is hemodynamically stable. Discussed with patient the results of her pelvic ultrasound, and it did discloses a gestational sac measuring size of about 6 weeks 0 days. There is no ectopic seen however there was no pole also noted within the gestational sac. Recommendations was to start tracking quantitative beta-hCG and for further follow-up by [facility]. I spoke with and explained the case of Ms. Guy to her. And the plan is for patient to follow-up within 2 days for an office visit for a repeat ultrasound and blood work. Was conveyed to patient who understands the need to follow-up. - Vital Signs Vital signs: Temp Pulse Resp BP Pulse Ox 97.5 F 87 19 139/86 H 100 03/10/19 14:36 03/10/19 14:36 03/10/19 14:36 03/10/19 14:36 03/10/19 14:36 - Laboratory Result Diagrams: 03/10/19 10:36 03/10/19 10:36 Laboratory results interpreted by me: 03/10/19 03/10/19 03/10/19 10:36 10:36 10:36 RBC 5.33 H Glucose 112 H Serum HCG, Qual POSITIVE H Beta HCG, Quant 03/10/19 10:36 RBC Glucose Serum HCG, Qual Beta HCG, Quant 04464.00 H - Diagnostic Test Radiology reviewed: Image reviewed, Reports reviewed Radiology results interpreted by me: 03/10/19 14:25 Ultrasound transvaginal disclosed a gestational sac of 6 weeks 0 days no pole was seen within the sac. Recommend monitor dates and follow-up on beta-hCG as it should double every 2 days. 03/10/19 17:37 Discharge - Discharge Clinical Impression: Pelvic pain affecting Condition: Stable Disposition: HOME, SELF-CARE Additional Instructions: Pelvic Pain There are many causes of pain in the pelvic area. The cause could be the tubes, ovaries, uterus, intestines, appendix, pelvic muscles and connective tissue, or the urinary tract. The cause of your pelvic pain is not clear. However, it seems safe to treat you outside the hospital. If the pain sounds like a temporary problem, we sometimes wait to see if it goes away. Other patients may need additional tests, such as pelvic ultrasound or cultures. Conditions may change. Call us or come back for reexamination if any problems occur, such as: (1) Pain that becomes more severe, steady, or becomes concentrated in one specific area. Also, pain that is more severe with movement or coughing. (2) Vomiting that persists or becomes more frequent. (3) Blood in the vomitus, urine, or bowel movements. Blood in the stool may have a tarry or black appearance. (4) Shaking chills or fever greater than 100 degrees. (5) The abdomen becomes more distended or swollen. (6) Bowel movements cease. (7) Heavy vaginal bleeding. You are . care is best started as early in as possible. If you're unsure about continuing this , you should discuss this with your physician or with healthcare receptionist at [facility]. You should take only medications approved by your physician. Acetaminophen can safely be taken for minor pains. As a rule, medication for chronic conditions such as asthma or seizures can safely be continued. You should discuss with the physician every medicine you take. Any regular exercise program can be continued. Talk to your physician, however, before engaging in competitive or demanding sports. Alcohol, smoking, and "street drugs" are dangerous to your baby. Cocaine is especially dangerous. Don't use any illicit drugs! Referrals: [facility] [Provider Group] - Follow up as needed I personally performed the services described in the documentation, reviewed and edited the documentation which was dictated to the scribe in my presence, and it accurately records my words and actions.
== END 2019-03-10 14:41 | disposition home or self-care (01) ==
LOC: ER 09:31
DX: O26.891 Other specified pregnancy related conditions, first trimester (principal); R10.2 Pelvic and perineal pain; Z3A.01 Less than 8 weeks gestation of pregnancy; Z87.442 Personal history of urinary calculi
CPT/HCPCS: 36415; 76705; 76830; 80053; 81001; 84702; 84703; 85025; 93976; 99284